=== PATIENT | male | born 1940 | race Caucasian/White ===

== ENCOUNTER → 2017-10-31 17:55 | Emergency (ER) | payer MEDICARE ==
[~2017-10-31 17:55] MED LIST: Polymyx/Trimethoprim OPTH* 10 ML BTL RIGHT EYE ONE
--- NOTE | 2017-10-31 21:23 | RAD ---
INDICATION: Pain and swelling. COMPARISON: None TECHNIQUE: Duplex interrogation of the right upperextremity was performed. FINDINGS: Deep veins: The visualized jugular, visualized subclavian, axillary, brachial, radial, and ulnar patent. There is normal compressibility, augmentation, and phasic flow. Superficial veins: The cephalic and basilic veins are patent There are no findings of superficial thrombophlebitis. Soft tissues:There are no soft tissue abnormalities. Note is made of a PICC line. IMPRESSION: NO EVIDENCE OF ACUTE DEEP VENOUS THROMBOSIS
--- NOTE | 2017-10-31 22:04 | ED ---
Upper Extremity Pain - HPI Summary HPI Summary: 77M presents with right hand swelling today. He has a history of leukemia. A picc line was placed two weeks ago. He states he woke up this morning with swelling to right hand. He denies any injury. no rash or fever. no chest pain or SOB. full ROM of hand. is right handed. did started medication that was on before yesterday and took one dose of it. in past had rash with medication but never had swelling. no hives. no difficulty swallowing. no facial swelling. no swelling anywhere else. no history of blood clots. no recent surgeries. nonsmoker. no family history of blood clots. is not on blood thinners. family spoke with oncologist said to come in for u/s to r/o dvt. Patient also has been having yellow pus discharge from right eye for a week. has tried saline without relief. it is itchy and getting worst. no change in vision. were glasses. - History of Current Complaint Chief Complaint: EDExtremityUpper Stated Complaint: RIGHT HAND SWOLLEN Time Seen by Provider: 10/31/17 20:13 - Allergies/Home Medications Allergies/Adverse Reactions: Allergies Allergy/AdvReac Type Severity Reaction Status Date / Time No Known Allergies Allergy Verified 10/31/17 18:01 PMH/Surg Hx/FS Hx/Imm Hx Endocrine/Hematology History: Denies: Hx Anticoagulant Therapy - Cancer History Cancer Type, Location and Year: leukemia Infectious Disease History: No Infectious Disease History: Denies: Traveled Outside the [place] in Last 30 Days - Family History Known Family History: Negative: Blood Disorder - Social History Alcohol Use: None Substance Use Type: Reports: None Smoking Status (MU): Never Smoked Tobacco Review of Systems Negative: Fever Positive: Drainage, Erythema Negative: Chest Pain Negative: Shortness Of Breath Positive: Edema - right hand All Other Systems Reviewed And Are Negative: Yes Physical Exam Triage Information Reviewed: Yes Vital Signs On Initial Exam: Initial Vitals Temp Pulse Resp BP Pulse Ox 97.9 F 84 20 121/69 98 10/31/17 17:56 10/31/17 17:56 10/31/17 17:56 10/31/17 17:56 10/31/17 17:56 Vital Signs Reviewed: Yes Appearance: Positive: Well-Appearing Skin: Positive: Warm, Dry Head/Face: Positive: Normal Head/Face Inspection Eyes: Positive: EOMI, KERWIN, Conjunctiva Inflammed - right eye, Discharge - yellow right eye ENT: Positive: Normal ENT inspection, Pharynx normal, TMs normal Respiratory/Lung Sounds: Positive: Clear to Auscultation, Breath Sounds Present Cardiovascular: Positive: Normal, RRR Musculoskeletal: Positive: Strength/ROM Intact - right hand, Edema Right - right hand, Other - good pulses, sensation grossly intact. capillary refill<2 secs Neurological: Positive: Normal Psychiatric: Positive: Normal Diagnostics - Vital Signs Vital Signs Temp Pulse Resp BP Pulse Ox 10/31/17 19:57 98.1 F 88 12 117/66 100 10/31/17 17:56 97.9 F 84 20 121/69 98 - Laboratory Lab Statement: Any lab studies that have been ordered have been reviewed, and results considered in the medical decision making process. - Ultrasound No standard instances Ultrasound Interpretation: No Acute Changes Ultrasound Interpretation Completed By: Radiologist Course/Dx - Course Course Of Treatment: 77M presents with right hand swelling today. He has a history of leukemia. A picc line was placed two weeks ago. He states he woke up this morning with swelling to right hand. He denies any injury. no rash or fever. no chest pain or SOB. full ROM of hand. is right handed. did started medication that was on before yesterday and took one dose of it. in past had rash with medication but never had swelling. no hives. no difficulty swallowing. no facial swelling. no swelling anywhere else. no history of blood clots. no recent surgeries. nonsmoker. no family history of blood clots. is not on blood thinners. family spoke with oncologist said to come in for u/s to r/o dvt. on exam swelling present right hand. neurovascular intact. nontender. u/s normal. medication that started was jadenu. looked up side effects edema <1%. discussed with patient and family and will continue medicaiton for now and stop if gets worst and follow up with oncology. Patient also has been having yellow pus discharge from right eye for a week. has tried saline without relief. it is itchy and getting worst. no change in vision. were glasses. on exam injected conjunctivia and drainage right eye will treat as conjunctivitis with polytrim. patient understand and agrees with plan. - Diagnoses Differential Diagnosis/HQI/PQRI: Positive: Sprain, Other - dvt, conjunctivitis Provider Diagnoses: edema right hand, Conjunctivitis Discharge - Discharge Plan Condition: Good Disposition: HOME Patient Education Materials: Edema (ED), Conjunctivitis (ED) Referrals: Cj Holloway MD [Primary Care Provider] - Additional Instructions: Place 1 drop in eye four times a day for 7 days Wash hands after touching eye Ice hand, elevate Follow up with oncology about swelling hand Return to ED if develop any new or worsening symptoms
[2017-10-31 22:30] VITALS: BP 108/60
== END | disposition home or self-care (01) ==
LOC: ED 17:55
DX: R60.0 Localized edema (principal); H10.31 Unspecified acute conjunctivitis, right eye; Z85.6 Personal history of leukemia
CPT/HCPCS: 99282